=== PATIENT | male | born 1970 | race Caucasian/White ===

== ENCOUNTER 2023-08-18 15:35 | Inpatient (IN) | payer OTHER, SELFPAY ==
[2023-08-18] VITALS (7 sets, daily range): BP systolic 106–129; BP diastolic 69–97; BMI 40.4; BMI 37.9
[2023-08-18 12:45] LABS: % Basophils 0.4 % (0-2); % Eosinophils 1.5 % (0-6); % Immature Granulocytes 0.5 % (0-0.5); % Lymphocytes 11.3 % (20.5-51.1); % Monocytes 8.5 % (1.7-9.3); % Neutrophils 77.8 % (42.2-75.2); Absolute Eosinophils 0.2 10^3/uL (0-0.7); Absolute Immature Granulocytes 0.1 10^3/uL (0-0.05); Absolute Lymphocytes 1.2 10^3/uL (1.2-3.4); Absolute Monocytes 0.9 10^3/uL (0.1-0.6); Absolute Neutrophils 7.9 10^3/uL (1.4-6.5); Hematocrit 45.1 % (39.0-52.0); Hemoglobin 14.9 g/dL (13.0-18.0); Mean Corpuscular Hgb 29.6 pg (27.0-31.0); Mean Corpuscular Volume 89.5 fL (80.0-94.0); Nucleated Red Blood Cells % 0 % (-); Platelet Count 229 10^3/uL (130-400); Red Blood Cell Count 5.04 10^6/uL (4.70-6.10); Red Cell Dist. Width 13.3 % (11.5-14.5); White Blood Cell Count 10.2 10^3/uL (4.8-10.8)
[2023-08-18 13:06] LABS: ALT (SGPT) 44 U/L (0-50); AST (SGOT) 27 U/L (17-59); Albumin 3.8 g/dl (3.5-5.0); Alkaline Phosphatase 83 U/L (38-126); Blood Urea Nitrogen 23 mg/dl (9-20); Calcium 9.5 mg/dl (8.4-10.2); Carbon Dioxide 37 mmol/L (22-30); Chloride 100 mmol/L (98-107); Glucose 125 mg/dl (70-99); Potassium 4.7 mmol/L (3.5-5.1); Sodium 142 mmol/L (135-145); Total Bilirubin 0.8 mg/dl (0.2-1.3); Total Protein 6.5 g/dl (6.3-8.2); eGFR > 60.00
[2023-08-18 13:24] LABS: NT-proBNP 1190 pg/ml; Troponin I 0.041 ng/ml
--- NOTE | 2023-08-18 13:50 | ED.GENMED ---
History of Present Illness
General
Chief Complaint: Cardiac Symptoms
Time Seen by Provider: 08/18/23 13:50
Travel History
Have you had any contact with someone who has COVID-19?: No
Do you have any symptoms of coronavirus? Fever > 100 degrees, chills, cough, shortness of breath, sore throat, loss of taste or smell, muscle aches, or headache?: No
History of Present Illness
History of Present Illness:
HPI: Patient presents with lower extremity edema. PMD found to be in new onset rapid atrial fibrillation. He does not sense palpitations. He also has some vague shortness of breath at times. The lower extremity edema is new. He also indicates
that his PMD told him that his blood sugar was high and he may have diabetes as well.
EXAM:
GENERAL: Well appearing in no significant distress
HEENT: Moist oral mucosa
CARDIOVASCULAR: No murmurs, tachycardic heart rate, irregular rhythm, No chest wall tenderness
PULMONARY: No respiratory distress, breath sounds are clear and equal other than some may be decreased breath sounds at the bases
ABDOMEN: Soft with no peritoneal signs, no tenderness
NEUROLOGIC: Excellent strength all extremities, no coordination deficits
PSYCHIATRIC: Appropriate mental status, normal insight and judgement
EXTREMITIES: Nontender, 2+ bilateral lower extremity edema, moves all extremities equally
SKIN: Maculopapular type of rash over the face is noted however I suspect this is chronic
TIME OF INITIAL ENCOUNTER: 2 PM
NUMBER AND COMPLEXITY OF PROBLEMS ADDRESSED AT THE ENCOUNTER
� Chronic conditions affecting care: Questionable diabetes, asthma, is a smoker
� Acute Exacerbation and/or Progression of Chronic Illness: This is an acute problem
� Differential Diagnosis includes: Heart failure, electrolyte abnormality, ACS, atrial fibrillation, thyroid disease, relatively low suspicion for PE as the lower extremity edema is equal bilaterally
AMOUNT AND/OR COMPLEXITY OF DATA TO BE REVIEWED AND ANALYZED
� I performed an independent evaluation of and my interpretation is:
EKG: A-fib 121, leftward axis deviation, poor R wave progression, right bundle branch block, and 2011 the patient was in sinus rhythm
CT:
X-rays: Chest x-ray suggest heart failure with only some mild pulmonary vascular congestion along with cardiomegaly
Laboratory Studies: BNP 1190, troponin 0.041, bicarb is 37
Other:
� Review of other/old records: I reviewed records, the patient had umbilical hernia surgically repaired in 2011
� Clinical information was obtained by an independent historian: I spoke to the fianc� at bedside
� Prescriptions/Medications Considered but not given:
� Further testing considered but not performed:
RISK OF COMPLICATIONS AND/OR MORBIDITY OR MORTALITY OF PATIENT MANAGEMENT
� Social determinants of health affecting care: Lives at home
� Discussion with other providers: I discussed with Dr. Vicente who recommends hospitalist admission and will see in consultation
� Escalation of care including admission/observation vs risk of discharge considered: I am concerned for new onset heart failure in the setting of A-fib with RVR, I have ordered Cardizem and will also plan diuresis. On
reassessment at 2:50 PM, he appears fairly comfortable. Heart rate is down to about 100. He was also given Lasix.
Phy Exam
Physical Exam
Physical Exam:
See HPI
Course
Orders/Labs/Results
Orders:
Orders
08/18/23 12:03
Electrocardiogram (*1) Urgent
Reason for Study: Shortness of Breath
EKG- Treatment ONCE
CXR2 [CR Chest - 2 Views ] Urgent
Comment:
Reason For Exam: sob new onset afib
08/18/23 12:29
Complete Blood Count/With Diff Urgent
Comprehensive Metabolic Panel Urgent
NT-proBNP Urgent
TSH Reflex To Free T4 Urgent
Comment: TSH REFLEXADDED ON BY FLOOR 1:50PM 08-18-23
Troponin I Urgent
08/18/23 13:52
Add On- LAB Urgent
Tests Added?: tsh reflex fT4
Diltiazem HCl [Cardizem] 10 mg IV NOW STA
08/18/23 14:00
Diltiazem 125 mg/125 ml Nss [Cardizem] 125 mg in 125 ml IV PER PROTOCOL
Initial dose in mg/hr, then titrate:: 10
Titrate to keep:: Heart rate 80-100 bpm
Titrate by mg/hr:: 5 mg/hr
Frequency of titrations (minutes):: 15
Maximum dose in mg/hr:: 15
08/18/23 14:02
Furosemide [Lasix] 40 mg IV NOW STA
08/18/23 14:51
CARDIOLOGY CONSULT Urgent
Consulting Provider: Merritt Vicente
Was physician already notified: Yes
Reason for consult: AFib w/ RVR / HF
Abnormal Lab Results
08/18/23
12:29
Abs Immat Gran (auto) 0.1 H 10^3/uL
(0-0.05)
Absolute Neuts (auto) 7.9 H 10^3/uL
(1.4-6.5)
Absolute Monos (auto) 0.9 H 10^3/uL
(0.1-0.6)
Neutrophils % 77.8 H %
(42.2-75.2)
Lymphocytes % 11.3 L %
(20.5-51.1)
Carbon Dioxide 37 H mmol/L
(22-30)
BUN 23 H mg/dl
(9-20)
Glucose 125 H mg/dl
(70-99)
Troponin I 0.041 H* ng/ml
08/18/23 12:29
08/18/23 12:29
Vital Signs
Initial and Last Documented VS:
Initial Vital Signs
Temp Pulse Resp Pulse Ox
98.0 F 108 16 98
08/18/23 12:00 08/18/23 12:00 08/18/23 12:00 08/18/23 12:00
Last Documented Vital Signs
Temp Pulse Resp Pulse Ox
98.0 F 108 16 98
08/18/23 12:00 08/18/23 12:00 08/18/23 12:00 08/18/23 12:00
*Critical Care Note
Total Time (30-74mins, 75-104mins- exclusive of procedures): Not Applicable
ED Attending Note
-
Portions of this chart may have been created with voice recognition software.� Occasional wrong word or��sound alike� substitutions may have occurred due to the inherent limitations of voice recognition software.
Discharge Plan
Departure
Patient Disposition: Admit
Date of Disposition: 08/18/23
Time of Disposition: 14:12
Presentation/result/management discussed w/ accepting MD/DO: Hospitalist
Discharge Problem:
Atrial fibrillation with RVR
Prescriptions:
No Action
ibuprofen 800 mg Tablet
800 mg PO Q6HPRN PRN (Reason: mild pain)
Interventions
Interventions:
*Risk Screen - Suicide Last Done: 08/18/23 14:32
*Neglect/Abuse Screening Last Done: 08/18/23 14:32
*ED COVID-19 Vaccine History Last Done: 08/18/23 12:00
ED- Pulmonary Assessment Last Done: 08/18/23 14:33
ED- Cardiac Assessment Last Done: 08/18/23 14:32
Discharge Date and Time
Print Language: PERSIAN
[2023-08-18] MEDS: CARDIZEM 10 MG IV (14:06)
[2023-08-18] MEDS: CARDIZEM 125 IV (14:07)
[2023-08-18] MEDS: LASIX 40 MG IV (14:22)
--- NOTE | 2023-08-18 14:25 | HPS.HSE ---
Addendum entered and electronically signed by Clemente Olson MD 08/18/23 16:35:
Seen and examined by me independently in collaboration with the nurse practitioner Manjeet.
Past medical history/social history/medication/allergies reviewed.
Lab data and imaging data reviewed.
Patient presents with signs and symptoms of acute congestive heart failure on [facility] A-fib. Hemodynamically stable. No immediate preceding acute medical issues precipitating cardiac issues. Alcohol in the differential diagnosis.
Started on Cardizem for rate control. Continue with IV Lasix. Check an echocardiogram. Admit to IVU. Consult cardiology.
Original Note:
Family Physician
-
Family Physician: Dirk Jackson
Chief Complaint
-
LE edema
sob
History of Present Illness
52-year-old with no significant past medical history presented to us with bilateral lower extremities swelling which progressively getting worse for past few weeks patient stated progressively short of breath which is worse with exertion. Patient
denied any chest pain. Denied orthopnea patient denied any headache, dizziness, syncopal episode. Patient denied fever, chills, congestion, cough. Patient denied abdominal pain, nausea, vomiting, diarrhea. Patient denied dysuria hematuria.
Patient was evaluated by primary care physician today. EKG obtained at the primary care noted to have A-fib with RVR. Sent into ER for further management.
Patient initiated on Cardizem drip.
Medical History
Past Medical History
Past Medical History: Reports Other
Additional Past Medical History:
psoriasis
Nicotine use
Past Surgical History: Reports Other
Additional Past Surgical History:
Herniated belly button surgery
Social History
Tobacco: Smoker (Half a pack)
Alcohol: Occasional
Drug: None
Personal:
Living: With Family
Family History
Family History: Not pertinent
Allergies / Home Medications
Allergies reflects when Allergies were last updated in [facility].
Home Medications with original date entered in [facility]
Allergy/Medication List:
Allergies
Allergy/AdvReac Type Severity Reaction Status Date / Time
No Known Drug Allergies Allergy na Verified 08/18/23 12:02
bee stings Allergy swells up Uncoded 08/18/23 12:02
really bad
Home Medications
ibuprofen 800 mg tablet 800 mg PO Q6HPRN PRN mild pain 08/18/23
Review of Systems
-
Constitutional: Reports No Symptoms
EENT: Reports No Symptoms
Respiratory: Reports Trouble Breathing
Cardiac: Reports No Symptoms
Abdomen/GI: Reports No Symptoms
: Reports No Symptoms
Musculoskeletal: Reports No Symptoms and Edema (Bilateral lower extremities edema)
Skin: Reports No Symptoms
Neurological: Reports No Symptoms
Endocrine: Reports No Symptoms
Hematologic/Lymphatic: Reports No Symptoms
Psych: Reports No Symptoms
Physical Exam
Vital Signs
Vital Signs
Temp Pulse Resp Pulse Ox
98.0 F 108 16 98
08/18/23 12:00 08/18/23 12:00 08/18/23 12:00 08/18/23 12:00
Physical Exam
General: Well Developed, Well Nourished and No Apparent Distress
HEENT: NormoCephalic, Moist mucous membranes and Atraumatic
Respiratory: Clear
Cardiac: S1/S2 and Regular Rhythm; No Murmur or Rub
GI: Soft, Non Tender, Non Distended and Normal Bowel Sounds; No Organomegaly
Rectal: Deferred by Provider
Musculoskeletal: No Clubbing, No Cyanosis, No Edema and Other (Bilateral lower extremities +2 edema)
Skin: No Rash
Neuro: AO x 3 and Nonfocal/grossly intact
Psych: Calm
Laboratory Results
-
08/18/23 12:29
08/18/23 12:29
Laboratory Results
Total Bilirubin 0.8 mg/dl (0.2-1.3) 08/18/23 12:29
AST 27 U/L (17-59) 08/18/23 12:29
ALT 44 U/L (0-50) 08/18/23 12:29
Alkaline Phosphatase 83 U/L (38-126) 08/18/23 12:29
Troponin I 0.041 ng/ml H* 08/18/23 12:29
Data Reviewed
-
Diagnostic Radiology: Report Reviewed by me
Lab Data: Labs Reviewed by me
Impression/Plan
-
# New onset A-fib
-HR in 130s to 140s
-EKG with ATRIAL FIBRILLATION WITH RAPID VENTRICULAR RESPONSE
-IV Cardizem continued
# Bilateral lower extremities edema likely new onset CHF,
-BNP 1190
-Chest x-ray with mild pulmonary vascular congestion/tiny bilateral pleural effusions.Hazy opacity projects over the right lower lung zone, which may represent alveolar pulmonary edema, subsegmental atelectasis, or pneumonia.
-Strict LINDA
-Daily weight
-IV Lasix
-Fluid restriction
-Cardiology consult
# Elevated Trop likely demand ischemia
-Trop 0.041
-Trend troponin
-No complaints of chest pain
-Continue to monitor
#hyperglycemia likely type 2 DM
-sliding scale
-bgm
-obtain a1c
#nicotine dependence
-nicotine patch
#hxt of alcohol abuse
-drink couple times a week
-continue to monitor
# DVT prophylaxis
-Lovenox
# CODE STATUS
-Full code
--- NOTE | 2023-08-18 14:44 | CON.CAR ---
Addendum entered and electronically signed by Merritt Vicente DO 08/18/23 17:14:
I saw and examined the patient.
The Pst Supervisor's note was reviewed and I agree with the note.
Comment:
Plan:
Discussed atrial fibrillation including rate control, rhythm control and stroke prophylaxis. Also discussed that atrial fibrillation may be contributing to his heart failure.
Start anticoagulation. IV heparin with transition to oral anticoagulation pending echo.
Likely consideration for GINGER/cardioversion once patient is better optimized from a heart failure standpoint, possibly next 48 hours.
Continue IV Cardizem and add oral Toprol. Wean off IV Cardizem next 24 hours.
Avoiding significant caffeine and alcohol was discussed.
Repeat sleep study should be considered as an outpatient as the patient has a history of sleep apnea not treated. Untreated sleep apnea has significant cerebrovascular and cardiovascular risk including stroke. Untreated sleep apnea may also be
contributing to his atrial fibrillation.
Heart failure teaching.
The patient should be monitored for alcohol withdrawal
Trend cardiac enzymes until they peak. Likely non-UT troponin
Check echocardiogram to evaluate left ventricular systolic function
Discussed with fianc� at bedside
Original Note:
Consultation
Consultation Request
Date/Time Consultation Requested: 08/18/23
Date/Time Consultation Performed: 08/18/23
Requesting Provider: Dr. Olson
Performing Provider: Dr. Vicente
Reason for Consultation: Acute HF unknown EF, newly diagnosed Afib
Medical History
-
History of Present Illness:
Patient came to [facility] today from his PCP's office with increased LE edema and new Afib, cardiology has been consulted. Patient started with increased LE edema 2-3 weeks ago. At first he thought it was from being at work and on his feet all day, but
this was a new symptom. He started with SOB about 1-2 weeks ago and has been unable to sleep the last 2-3 nights with symptoms of restlessness, but not reported orthopnea. No resting SOB. Patient saw his PCP today and was in new Afib, but he does
not feel palpitations. Patient was sent to [facility] and pro-BNP 1190 and evidence of CHF by CXR. Patient was given Lasix 40 mg IV x1 in the ER and has noted tremendous urine output thus far. Patient drinks a Monster energy drink daily plus 5 hour energy
drinks as needed. He drinks about a fifth of Radu weekly. He is still smoking about half a pack a day.
PMH:
Active smoker
Alcohol use disorder
Psoriasis
Past Medical History
Past Medical History: Other (in HPI)
Past Surgical History: Other (hernia repair)
Social History
Tobacco: Smoker (started smoking age 18, still smoking now and down to a half pack)
Alcohol: Daily (drinks a fifth of Radu a week, more on weekends than weekdays)
Drug: None
Personal: (but has a supportive partner, Edwige.)
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
Family History
Family History: Reviewed & Not Pertinent
Allergies / Home Medications
Allergy/AdvReac Type Severity Reaction Status Date / Time
No Known Drug Allergies Allergy na Verified 08/18/23 12:02
bee stings Allergy swells up Uncoded 08/18/23 12:02
really bad
�Medication �Instructions �Recorded �Confirmed �Type
ibuprofen 800 mg tablet 800 mg PO Q6HPRN PRN mild pain 08/18/23 08/18/23 History
Review of Systems
-
History Source: Patient and Family (partner, Edwige, sitting bedside and helping with HPI)
All other systems: Negative unless noted
Physical Exam
Vital Signs
Temp Pulse Resp Pulse Ox
98.0 F 108 16 98
08/18/23 12:00 08/18/23 12:00 08/18/23 12:00 08/18/23 12:00
GEN: NAD. AAOx3
HEENT: EOMI, MMM
LUNGS: Few rales without wheeze
CV: Irreg irreg, S1/S2, no murmur
ABD: soft, BS+, NT, ND, pitting edema lower abdomen
EXT: Pitting edema above thighs to lower abdomen. No clubbing, cyanosis or lesions B/L
NEURO: Gross non-focal
SKIN: Psoriasis, otherwise warm, dry and pink.
Lab Results
08/18/23 12:29
08/18/23 12:
Troponin I 0.041 ng/ml H* 08/18/23 12:
Ijf-[id number]-[id number] Pept 1190 pg/ml 08/18/23 12:
Impression / Plan
-
PCP: Dr. Jackson
Cardiology: None prior to admission
Impression:
Acute HF unknown EF
Anasarca
Newly diagnosed Afib with RVR of unclear duration
Elevated Troponin
Active smoker
Alcohol use disorder
Untreated AAMIR
Hyperglycemia
Psoriasis
Echo 08/18/23: Study pending
Plan:
-Patient came to [facility] today from his PCP's office with increased LE edema and new Afib, cardiology has been consulted. Patient started with increased LE edema 2-3 weeks ago. At first he thought it was from being at work and on his feet all day, but
this was a new symptom. He started with SOB about 1-2 weeks ago and has been unable to sleep the last 2-3 nights with symptoms of restlessness, but not reported orthopnea. No resting SOB. Patient saw his PCP today and was in new Afib, but he does
not feel palpitations. Patient was sent to [facility] and pro-BNP 1190 and evidence of CHF by CXR. Patient was given Lasix 40 mg IV x1 in the ER and has noted tremendous urine output thus far. Patient drinks a Monster energy drink daily plus 5 hour energy
drinks as needed. He drinks about a fifth of Radu weekly. He is still smoking about half a pack a day.
-Check echo
-Agree with Lasix 40 mg IV daily, can increase pending weight, Cre and BP.
-Cardizem gtt started in ER and HRs under better control. Will add Toprol XL 25 mg daily starting tonight as well.
-Will start Heparin gtt now and then transition to Eliquis pending echo.
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 Reviewed that in order to perform GINGER/CV he will need at least a month of OAC.
-Talked about short term and detention management of Afib, reviewed GINGER/CV this admission and then longer term AAD or possibly ablation.
-Will modify meds pending echo and EF.
-Patient with h/o abnormal sleep study and was recommended CPAP, but his insurance would not cover at the time. He has different insurance now so will need a new sleep study and eval for CPAP.
-Talked with hospitalist attending about alcohol use and will need to watch for withdrawal.
-Initial Troponin 0.041. No ischemic changes on ECG reviewed by me. Echo pending. No chest pain. Will manage as a nonischemic myocardial injury Troponin elevation for now.
-HgbA1c and CVE pending for the morning
[2023-08-18 15:30] LABS: TSH Reflex To Free T4 4.98 uIU/ml (0.47-4.68)
[2023-08-18 16:00] LABS: Free T4 1.16 ng/dl (0.78-2.19)
[2023-08-18] MEDS: NICODERM TRANSDERMAL 21 MG TRANSDERM (17:17)
[2023-08-18] MEDS: LOVENOX 40 MG SC (17:18)
[2023-08-18 17:45] LABS: Glucose - Point of Care 113 mg/dl (70-99)
[2023-08-18] MEDS: NOVOLOG FLEXPEN-LOW RESISTANCE SC (17:49)
--- NOTE | 2023-08-18 18:34 | PTCARENOTE ---
patient arrived from ER with IV Cardizem drip @ 10cc/hr, monitor placed, Afib on the monitor. this is all new to patient. VSS. oriented to unit. admission questions asked, patient smokes marijuana and cigarettes. NicoDerm patch placed on left arm.
CHF booklet given to patient.
[2023-08-18 19:52] LABS: Troponin I 0.048 ng/ml
[2023-08-18 21:28] LABS: Glucose - Point of Care 124 mg/dl (70-99)
--- NOTE | 2023-08-18 21:35 | PTCARENOTE ---
CHF teaching provided- Pt educated on voiding the urinal and monitoring fluid intake- daughter brought [facility]- discussed this was not the best option for hydration at this time. pt verbalized understanding- without complaints. ambulating the
room as a self. call tate within reach.
[2023-08-19] VITALS (15 sets, daily range): BP systolic 105–134; BP diastolic 66–109; BMI 37.6
[2023-08-19 02:16] LABS: Hematocrit 42.8 % (39.0-52.0); Hemoglobin 14.4 g/dL (13.0-18.0); Mean Corp Hgb Conc. 33.6 g/dL (33.0-37.0); Mean Corpuscular Hgb 29.2 pg (27.0-31.0); Mean Corpuscular Volume 86.8 fL (80.0-94.0); Mean Platelet Volume 9.5 fL (7.4-10.4); Platelet Count 220 10^3/uL (130-400); Red Blood Cell Count 4.93 10^6/uL (4.70-6.10); Red Cell Dist. Width 13.3 % (11.5-14.5); White Blood Cell Count 11.4 10^3/uL (4.8-10.8)
[2023-08-19] MEDS: CARDIZEM 125 IV (02:18)
[2023-08-19 02:43] LABS: ALT (SGPT) 34 U/L (0-50); AST (SGOT) 26 U/L (17-59); Albumin 3.5 g/dl (3.5-5.0); Alkaline Phosphatase 78 U/L (38-126); Blood Urea Nitrogen 19 mg/dl (9-20); Calcium 9.6 mg/dl (8.4-10.2); Carbon Dioxide 36 mmol/L (22-30); Chloride 97 mmol/L (98-107); Direct Bilirubin 0.5 mg/dl (0.0-0.4); Estimated Creatinine Clearance > 125 ml/min; Glucose 130 mg/dl (70-99); HDL Cholesterol 33 mg/dl; LDL Cholesterol, Calculated 84 mg/dl; Magnesium 1.9 mg/dl (1.6-2.3); Potassium 4.2 mmol/L (3.5-5.1); Sodium 141 mmol/L (135-145); Total Cholesterol 131 mg/dl (50-199); Total Protein 6.1 g/dl (6.3-8.2); Triglyceride 70 mg/dl (10-149); Very Low Density Lipoprotein 14 mg/dl (0-30); eGFR > 60.00
[2023-08-19 03:22] LABS: Troponin I 0.047 ng/ml
--- NOTE | 2023-08-19 07:26 | W.PN.CARDCBS ---
Addendum entered and electronically signed by Merritt Vicente DO 08/19/23 10:09:
I saw and examined the patient.
The Tower Control Operator's note was reviewed and I agree with the note.
Comment:
Plan:
Cont lasix IV diuresis. 4L out overnight. May consider additional lasix IV today
Echo pending.
Wean IV cardizem and increase Toprol XL
Likely transition to oral anticoagulation with Eliquis today from IV Heparin.
Needs outpt sleep study for hx AAMIR not on CPAP. Risk of recurrent aFib and CVA with untreated AMAIR
GINGER/cv in AM
Original Note:
Today's Communication / Plan
-
Considering another dose of Lasix this afternoon
Echo pending for today
Stopped Cardizem gtt and started Toprol XL
Pending echo and EF will need to tailor meds
GINGER/CV in AM
Impression / Plan
-
PCP: Dr. Jackson
Cardiology: None prior to admission
Impression:
Acute HF unknown EF
Anasarca
Newly diagnosed Afib with RVR of unclear duration
Elevated Troponin
Active smoker
Alcohol use disorder
Untreated AAMIR
Hyperglycemia
Psoriasis
Echo 08/19/23: Study pending
Plan:
-Weight is down 3 lbs overnight with Lasix 40 mg IV daily and Cre is stable. Might give another dose of Lasix 40 mg IV 08/19/23 PM pending diuresis throughout the day
-Echo pending for 08/19/23
-Pending echo will need to adjust meds.
-Remains in Afib on tele. Stop Cardizem gtt now. Will add Toprol XL 25 mg daily now
-Started Heparin gtt 08/19/23. Pending echo will transition to Eliquis
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 Reviewed that in order to perform GINGER/CV he will need at least a month of OAC.
-Talked about short term and half-way management of Afib, reviewed GINGER/CV this admission and then longer term AAD or possibly ablation.
-Patient with h/o abnormal sleep study and was recommended CPAP, but his insurance would not cover at the time. He has different insurance now so will need a new sleep study and eval for CPAP.
-Talked with hospitalist attending about alcohol use and will need to watch for withdrawal.
-Troponin peaked at 0.048. No ischemic changes on ECG reviewed by me. Echo pending. No chest pain. Will manage as a nonischemic myocardial injury Troponin elevation for now.
-HgbA1c pending. Hyperglycemic with fasting morning labs
-LDL 84, does not take a statin.
HPI: Patient came to [facility] today from his PCP's office with increased LE edema and new Afib, cardiology has been consulted. Patient started with increased LE edema 2-3 weeks ago. At first he thought it was from being at work and on his feet all day,
but this was a new symptom. He started with SOB about 1-2 weeks ago and has been unable to sleep the last 2-3 nights with symptoms of restlessness, but not reported orthopnea. No resting SOB. Patient saw his PCP today and was in new Afib, but he
does not feel palpitations. Patient was sent to [facility] and pro-BNP 1190 and evidence of CHF by CXR. Patient was given Lasix 40 mg IV x1 in the ER and has noted tremendous urine output thus far. Patient drinks a Fanattacter energy drink daily plus 5 hour
energy drinks as needed. He drinks about a fifth of Radu weekly. He is still smoking about half a pack a day.
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
Subjective
Date of Service: August 19, 2023
He feels well, no palpitations
Objective
Labs:
08/19/23 02:10
08/19/23 02:10
Labs
Hgb 14.4 g/dL (13.0-18.0) 08/19/23 02:10
Hct 42.8 % (39.0-52.0) 08/19/23 02:10
Plt Count 220 10^3/uL (130-400) 08/19/23 02:10
Sodium 141 mmol/L (135-145) 08/19/23 02:10
Potassium 4.2 mmol/L (3.5-5.1) 08/19/23 02:10
BUN 19 mg/dl (9-20) 08/19/23 02:10
Creatinine 0.7 mg/dL (0.7-1.3) 08/19/23 02:10
Glucose 130 mg/dl (70-99) H 08/19/23 02:10
Troponins
08/18/23 08/18/23 08/19/23
12:29 19:21 02:10
Troponin I 0.041 H* 0.048 H* 0.047 H*
Vital Signs and I&O:
Vital Signs
Temp Pulse Resp BP Pulse Ox
97.7 F 83 18 105/66 92
08/19/23 07:16 08/19/23 05:00 08/19/23 07:16 08/19/23 02:02 08/19/23 07:16
Vital Signs
Temp Pulse Resp BP Pulse Ox
97.7 F 83 18 105/66 92
08/19/23 07:16 08/19/23 05:00 08/19/23 07:16 08/19/23 02:02 08/19/23 07:16
Intake & Output
08/17/23 08/18/23 08/19/23 08/20/23
06:59 06:59 06:59 06:59
Intake Total 30 / 30
Output Total 4060 / 4060
Balance -4030 / -4030
Physical Exam
Physical Exam
GEN: AAOx3
HEENT: EOMI
LUNGS: No audible wheeze
CV: Afib on tele
ABD: ND
EXT: Pitting edema above thighs to lower abdomen. No clubbing, cyanosis or lesions B/L
NEURO: Gross non-focal
SKIN: Psoriasis, otherwise warm, dry and pink.
[2023-08-19 08:07] LABS: APTT 29.4 Sec (23.4-35.0)
[2023-08-19] MEDS: HEPARIN 25000 UNITS/250 ML IV (08:27)
[2023-08-19] MEDS: LASIX 40 MG IV (08:34)
[2023-08-19] MEDS: NICODERM TRANSDERMAL 21 MG TRANSDERM (08:35)
--- NOTE | 2023-08-19 09:12 | W.PN.HOSP.TC ---
Today's Communication/Plan
-
ECHO today
CW BB
CW Lasix
CW IV heparin
Assessment / Plan
Assessment / Plan
# New onset A-fib
-Improved heart rate. Off of Cardizem drip. Started on beta-teresa. Continue with telemetry. Thyroid profile noted-no evidence of hypothyroidism.
-Started on anticoagulation-currently on IV heparin.
-If remains in A-fib plan is for GINGER cardioversion tomorrow.
# Bilateral lower extremities edema likely new onset CHF,
-BNP 1190
-Chest x-ray with mild pulmonary vascular congestion/tiny bilateral pleural effusions.Hazy opacity projects over the right lower lung zone, which may represent alveolar pulmonary edema, subsegmental atelectasis, or pneumonia.
-Strict LINDA
-Daily weight
-Continue IV Lasix
-Fluid restriction
-Await echocardiogram
# Elevated Trop-felt likely nonischemic myocardial injury
-Trop 0.041
-Trend troponin
-No complaints of chest pain
-Continue to monitor
#hyperglycemia likely type 2 DM
-sliding scale
-bgm
-obtain a1c
#nicotine dependence
-nicotine patch
#hx of alcohol abuse
-Drinks on the weekends last some days of the week. Advised to minimize alcohol intake or try and abstain from alcohol altogether which is good for his health and afib.
-continue to monitor
-No evidence of alcohol withdrawal
# DVT prophylaxis
-Lovenox
# CODE STATUS
-Full code
Anticipated Discharge: 24 - 48 hours
Subjective/Interval History
-
Date of Service: August 19, 2023
Sitting comfortably at the edge of the bed. Denies any shortness of breath, chest pain or palpitations.
Objective Data
-
Labs:
Laboratory Results
08/19/23 08/19/23 08/19/23
02:10 07:49 14:30
WBC 11.4 H
Hgb 14.4
Hct 42.8
Plt Count 220
APTT 29.4 Pending
Sodium 141
Potassium 4.2
Chloride 97 L
Carbon Dioxide 36 H
BUN 19
Creatinine 0.7
Glucose 130 H
Calcium 9.6
Total Bilirubin 1.0
AST 26
ALT 34
Alkaline Phosphatase 78
Vital Signs:
Vital Signs
Temp Pulse Resp BP Pulse Ox
97.7 F 86 18 107/67 92
08/19/23 07:16 08/19/23 08:34 08/19/23 07:16 08/19/23 08:34 08/19/23 07:16
I&O
08/18/23 08/19/23 08/20/23
06:59 06:59 06:59
Intake Total 30 30
Output Total 4060 / 4060
Balance -4030 / -4030
Review of Systems
-
Constitutional: Denies Fever
EENT: Denies Sore Throat
Respiratory: Denies Cough
Abdomen/GI: Denies Abdominal Pain, Nausea or Vomiting
Neuro: Denies Tremors
Physical Exam
-
General: No Apparent Distress
HEENT: Moist Mucous Membranes
Respiratory: Clear to Auscultation
Cardiac: S1/S2 and Irregular Rhythm; Negative Tachycardic
GI: Soft
Musculoskeletal: Edema, Right Lower Extrem and Edema, Left Lower Extrem
Neuro: AO x 3; Negative Tremors
Psych: Calm; Negative Confused
Data Reviewed
-
Labs: Labs Reviewed by me
[2023-08-19 09:22] LABS: Glycohemoglobin (HgbA1c) 6.9 % (4.0-5.6)
[2023-08-19] MEDS: NOVOLOG FLEXPEN-LOW RESISTANCE SC (09:33)
[2023-08-19] MEDS: TOPROL XL 12.5 MG PO ×2 (10:22)
--- NOTE | 2023-08-19 10:36 | PTCARENOTE ---
received patient this am, monitor remains in Afib, VSS. IV Cardizem @ 10cc/hr and IV heparin started at 1500units/hr via right ant. patient was going to Echo via stretcher, Toprol XL increased dosage given as ordered and IV Cardizem drip D/C'd.
--- NOTE | 2023-08-19 10:52 | CM ---
Reviewed chart. Met with Mr. Woodward and his significant other to review discharge plans. He states prior to admission he resides with his significant other in a two story home with one step to enter. He states his bedroom/full bathroom are on the
first floor. He states prior to admission he was independent with ambulation and adls. He states he cool snot have any DME in the home. He states he has a prescription plan and uses [facility]. Telephone call to his pharmacy benefit to check on
coverage for Eliquis and Xarelto. He has a zero co-pay for Eliquis and zero co-apy for Xarelto. Medical work-up in progress. The discharge plan is to return home with his significant other when medically stable.
[2023-08-19 11:28] LABS: Glucose - Point of Care 176 mg/dl (70-99)
[2023-08-19] MEDS: NOVOLOG FLEXPEN-LOW RESISTANCE 1 UNITS SC ×2 (11:59→17:21)
--- NOTE | 2023-08-19 12:59 | PTCARENOTE ---
patient to sleep lab technologist via bed.
--- NOTE | 2023-08-19 12:59 | W.PN.UPDATE ---
Update Note
Progress Note Update
Talked with patient and his partner, Edwige, in the room. Reviewed echo findings. Discussed CM could be due to CAD or Afib. Explained that cardiac cath would be a tool to exclude CAD as a cause for his CM. Explained that once we perform GINGER/CV he
cannot interrupt OAC for 1 month. Answered questions and explained procedure. Plan is for cardiac cath today.
--- NOTE | 2023-08-19 14:32 | ITS.CL.CATH ---
Payroll Assistant - Catheterization
Cardiac Catheterization
Procedure Report:
LEFT HEART CATHETERIZATION
Date of Procedure: August 19, 2023
Referring: Dr. Merritt Vicente
PROCEDURES:
1. Coronary angiogram
INDICATION: Dilated cardiomyopathy apathy and new onset atrial fibrillation
ACCESS: Right radial artery, 6 Sinhala sheath
HEMODYNAMICS : (mmHg)
AO (s/d) : 103/77, 86
CORONARY FINDINGS
DOMINANCE: Left
LEFT MAIN: Short and unobstructed
LEFT ANTERIOR DESCENDING: The LAD is a large-caliber vessel arising normally from the left main and running in the anterior interventricular groove. The LAD has only minor irregularities over its course and wraps completely around the apex
supplying a significant portion of the inferior wall.
CIRCUMFLEX: The circumflex is a large-caliber dominant vessel supplying a single bifurcating obtuse marginal branch before continuing in the AV groove giving rise to 2 small posterolateral branch and small PDA.
RIGHT CORONARY ARTERY: Nondominant
VENTRICULOGRAPHY: Not done
RADIATION SUMMARY: Fluoro Time (min): 4.6, Dose (mGy): 594, DAP (Gy.cm2) : 40.1
Closure Device: TR band
CONCLUSIONS
1. Nonobstructive coronary disease
RECOMMENDATIONS
1. Planned GINGER cardioversion for atrial fibrillation
Copy to: Dr. Merritt Vicente
[2023-08-19 16:55] LABS: Glucose - Point of Care 172 mg/dl (70-99)
[2023-08-19] MEDS: ELIQUIS 5 MG PO (20:10)
--- NOTE | 2023-08-19 21:37 | PTCARENOTE ---
pt and significant other at bedside- plan of care discussed- education provided on CHF- both verbalized understanding. Aware of NPO status for this evening for plans for GINGER/CV. remains afib on the monitor. 90s-100s at rest then up to the 140s with
movement. no complaints at this time. call tate within reach.
[2023-08-19 22:00] LABS: Glucose - Point of Care 121 mg/dl (70-99)
[2023-08-20] VITALS (9 sets, daily range): BP systolic 102–155; BP diastolic 67–138; PULSE 93; BMI 37.1
--- NOTE | 2023-08-20 03:11 | DOWNTIME ---
There was a [employer] Client Cost And Sales Record Supervisor Downtime on 08/19/2023 from 0100 to 08/20/2023 at 0300. Downtime documentation of patient's care, including medication administrations, has been reconciled in the electronic record per guidelines. Refer to the
patient's paper chart under the miscellaneous tab to see printed paper medication records and downtime forms.
[2023-08-20 04:59] LABS: Hematocrit 41.7 % (39.0-52.0); Hemoglobin 13.9 g/dL (13.0-18.0); Mean Corp Hgb Conc. 33.3 g/dL (33.0-37.0); Mean Corpuscular Volume 87.1 fL (80.0-94.0); Mean Platelet Volume 9.9 fL (7.4-10.4); Platelet Count 221 10^3/uL (130-400); Red Blood Cell Count 4.79 10^6/uL (4.70-6.10); Red Cell Dist. Width 13.2 % (11.5-14.5); White Blood Cell Count 10.7 10^3/uL (4.8-10.8)
[2023-08-20 05:23] LABS: Blood Urea Nitrogen 21 mg/dl (9-20); Calcium 9.7 mg/dl (8.4-10.2); Carbon Dioxide 33 mmol/L (22-30); Chloride 97 mmol/L (98-107); Estimated Creatinine Clearance > 125 ml/min; Glucose 129 mg/dl (70-99); Potassium 4.2 mmol/L (3.5-5.1); Sodium 137 mmol/L (135-145); eGFR > 60.00
[2023-08-20] MEDS: ELIQUIS 5 MG PO ×2 (07:01→20:11)
[2023-08-20] MEDS: TOPROL XL 25 MG PO (07:02)
[2023-08-20] MEDS: LASIX 40 MG IV (09:16)
[2023-08-20] MEDS: NICODERM TRANSDERMAL 21 MG TRANSDERM (09:20)
[2023-08-20] MEDS: NOVOLOG FLEXPEN-LOW RESISTANCE SC ×3 (09:33→18:26)
[2023-08-20 09:39] LABS: Glucose - Point of Care 120 mg/dl (70-99)
--- NOTE | 2023-08-20 10:13 | W.PN.CARDCBS ---
Addendum entered and electronically signed by James Dyer MD 08/20/23 12:45:
I saw and examined the patient.
The [employer] Consultant's note was reviewed and I agree with the note.
Comment:
GEN: No distress, awake, Ox3
HEENT: supple, anicteric, mmm
LUNGS: CTA, no wheezes/rales
CV: Reg, S1/S2, 1/6 syst LSB, no gallop
ABD: soft, BS+, NT/ND
EXT: +1 edema
NEURO: Gross non-focal
SKIN: No rash
plan:
Doing well status post GINGER cardioversion. Will switch to Coreg and add losartan and Jardiance.
Continue IV Lasix to diurese.
Will need repeat echo in 3 months to reevaluate LVEF.
Needs outpatient sleep study.
If has recurrent A-fib would consider antiarrhythmic or ablation therapy.
Original Note:
Today's Communication / Plan
-
s/p successful GINGER/CV 08/19
transition toprol to coreg. added losartan, jardiance today
continue IV lasix
OP sleep study
Impression / Plan
-
PCP: Dr. Jackson
Cardiology: None prior to admission
Impression:
Acute HFrEF
Anasarca
Newly diagnosed Afib with RVR of unclear duration s/p successful GINGER/CV 08/20/23
Elevated Troponin, nonMI trop elevation as cath with nonobstructive CAD 08/19/23
Active smoker
Alcohol use disorder
Untreated AAMIR
New diagnosis type 2 diabetes
Psoriasis
Echo 08/19/23: EF 25 to 30%, global hypokinesis, trace MR, mild TR, PAP 30 to 35 mmHg, IVC dilated and does not collapse, no evidence of shunt
Plan:
-He presented for evaluation of B/L LE edema and was found to be in afib with RVR. he underwent echo with new EF 25-30%. cath with nonobstructive CAD 08/19/23.
-s/p successful GINGER/CV 08/20/23. continue eliquis, discussed importance of compliance in setting of CV.
-reviewed results of echo and cath with patient 08/19.
-continue IV diuresis. weight continues to trend down. Cr stable.
-given CM, transitioned toprol to coreg. added low dose losartan, with hope to transition to entresto as OP if BPs tolerate. add jardiance, CM assessing affordability to patient
-consider addition of spironolactone if BP/Cr stable in AM
-will need BMP in 1 week upon DC
-if were to recur with afib, would consider addition of AAD therapy and discuss EP eval for ablation
-h/o abnormal sleep study and was recommended CPAP, but his insurance would not cover at the time. He has different insurance now, so needs OP sleep study as with evidence of sleep apnea
-tobacco and alcohol cessation
-HgbA1c 6.9%, new diabetic. starting jardiance for both diabetes and CHF if affordable
-LDL 84, not on statin.
-OP cardiac follow up arranged
-for possible DC in AM
-d/w nursing, hospitalist
HPI: Patient came to [facility] today from his PCP's office with increased LE edema and new Afib, cardiology has been consulted. Patient started with increased LE edema 2-3 weeks ago. At first he thought it was from being at work and on his feet all day,
but this was a new symptom. He started with SOB about 1-2 weeks ago and has been unable to sleep the last 2-3 nights with symptoms of restlessness, but not reported orthopnea. No resting SOB. Patient saw his PCP today and was in new Afib, but he
does not feel palpitations. Patient was sent to [facility] and pro-BNP 1190 and evidence of CHF by CXR. Patient was given Lasix 40 mg IV x1 in the ER and has noted tremendous urine output thus far. Patient drinks a Monster energy drink daily plus 5 hour
energy drinks as needed. He drinks about a fifth of Radu weekly. He is still smoking about half a pack a day.
Progress Note - Floor Press Operator
Subjective
Date of Service: August 20, 2023
denies CP. reports improvement in breathing and LE edema
Objective
Labs:
08/20/23 04:39
08/20/23 04:39
Labs
Hgb 13.9 g/dL (13.0-18.0) 08/20/23 04:39
Hct 41.7 % (39.0-52.0) 08/20/23 04:39
Plt Count 221 10^3/uL (130-400) 08/20/23 04:39
APTT Cancelled 08/19/23 14:30
Sodium 137 mmol/L (135-145) 08/20/23 04:39
Potassium 4.2 mmol/L (3.5-5.1) 08/20/23 04:39
BUN 21 mg/dl (9-20) H 08/20/23 04:39
Creatinine 0.6 mg/dL (0.7-1.3) L 08/20/23 04:39
Glucose 129 mg/dl (70-99) H 08/20/23 04:39
Troponins
08/18/23 08/18/23 08/19/23
12:29 19:21 02:10
Troponin I 0.041 H* 0.048 H* 0.047 H*
Vital Signs and I&O:
Vital Signs
Temp Pulse Resp BP Pulse Ox
97.9 F 94 20 110/85 97
08/20/23 04:41 08/20/23 05:00 08/20/23 04:41 08/20/23 04:34 08/20/23 08:00
Vital Signs
Temp Pulse Resp BP Pulse Ox
97.9 F 94 20 110/85 97
08/20/23 04:41 08/20/23 05:00 08/20/23 04:41 08/20/23 04:34 08/20/23 08:00
Intake & Output
08/18/23 08/19/23 08/20/23 08/21/23
07:59 07:59 07:59 07:59
Intake Total 30 660 / 660
Output Total 4060 / 4060 2400 / 2400 1500 / 1500
Balance -4030 / -4030 -1740 / -1740 -1500 / -1500
Physical Exam
Physical Exam
GEN: No distress, awake, alert, oriented x3. sitting in chair
HEENT: supple, anicteric, mmm, eomi
LUNGS: Few crackles B/L bases, no wheezes
CV: Reg, S1/S2, no murmur
ABD: soft, BS+, NT/ND
EXT: No cyanosis, clubbing. 2+ edema of B/L LE
NEURO: Gross non-focal
SKIN: Warm, pink, dry. No rash
--- NOTE | 2023-08-20 10:39 | PTOTSP ---
Patient is independent with functional mobility. No skilled PT needs at this time. Will D/C PT services.
[2023-08-20] MEDS: JARDIANCE 10 MG PO (11:35)
[2023-08-20] MEDS: COZAAR 25 MG PO (11:35)
--- NOTE | 2023-08-20 11:36 | CM ---
Reviewed chart. Asked to check co-pay for Jardiance 10 mg po daily. Telephone call to his insurance, ([phone]) to check on co-pay. It is covered under the formulary plan but he has to call the [employer] at( [phone]) to fet the co-pay.
They think the co-pay will be $10.00 a month for Jardiance and $10.00 a month for Eliquis. Met with Mr. Woodward and significant other to review above. He has the number to call the [employer]. Also gave them the $10.00 coupon for Jardiance and
$10.00 coupon for Eliquis because he has commercial insurance. Medical work-up in progress. The discharge plan is to return home with his significant other when medically stable.
--- NOTE | 2023-08-20 11:41 | W.PN.HOSP.TC ---
Today's Communication/Plan
-
see plan above
Likely DC in a.m. if stable.
Assessment / Plan
Assessment / Plan
# New onset A-fib
- s/p electrical cardioversion this morning-in sinus rhythm. cw beta-teresa. Continue with telemetry. Thyroid profile noted-no evidence of hypothyroidism.
-Started on anticoagulation- switch to Eliquis today from IV heparin.
# Bilateral lower extremities edema likely new onset CHF with reduced EF of 25 to 30%
-BNP 1190
-Chest x-ray with mild pulmonary vascular congestion/tiny bilateral pleural effusions.Hazy opacity projects over the right lower lung zone, which may represent alveolar pulmonary edema, subsegmental atelectasis, or pneumonia.
- chronic catheterization shows nonobstructive CAD
-Continue with diuretics with improving weight. Lost 20 pounds of weight.
-Patient advised strongly to quit alcohol.
History of obstructive sleep apnea-patient had evaluation more than 10 years ago and was recommended a CPAP machine but could not afford at that point. He plans to return to see in sleep lab as before and get reevaluated and obtain CPAP.
# Elevated Trop-felt likely nonischemic myocardial injury
-Trop 0.041
-No complaints of chest pain
-Continue to monitor
#hyperglycemia - Hemoglobin A1c of 6.9 indicates type 2 DM
-sliding scale
-bgm
- is going on Jardiance for heart failure which also should help his diabetes mellitus. No plans for any other medication at this point.
#nicotine dependence
-nicotine patch
#hx of alcohol abuse
-Drinks on the weekends last some days of the week. Advised to abstain from alcohol altogether .
-continue to monitor
-No evidence of alcohol withdrawal
# DVT prophylaxis
-Lovenox
# CODE STATUS
-Full code
Anticipated Discharge: 24 - 48 hours
Subjective/Interval History
-
Date of Service: August 20, 2023
patient feels improved. Improved leg swelling. Denies shortness of breath or chest pain.
Status post electrical cardioversion this morning for A-fib
Objective Data
-
Labs:
Laboratory Results
08/20/23
04:39
WBC 10.7
Hgb 13.9
Hct 41.7
Plt Count 221
Sodium 137
Potassium 4.2
Chloride 97 L
Carbon Dioxide 33 H
BUN 21 H
Creatinine 0.6 L
Glucose 129 H
Calcium 9.7
Vital Signs:
Vital Signs
Temp Pulse Resp BP Pulse Ox
98.6 F 94 20 110/85 94
08/20/23 11:31 08/20/23 05:00 08/20/23 11:31 08/20/23 04:34 08/20/23 11:31
I&O
08/19/23 08/20/23 08/21/23
06:59 06:59 06:59
Intake Total 30 / 30 660 / 660
Output Total 4060 / 4060 2400 / 2400 1500 / 1500
Balance -4030 / -4030 -1740 / -1740 -1500 / -1500
Review of Systems
-
Respiratory: Denies Cough or Trouble Breathing
Cardiac: Denies Chest Pain
Abdomen/GI: Denies Abdominal Pain, Nausea or Vomiting
Neuro: Denies Dizzy
Physical Exam
-
General: No Apparent Distress
HEENT: Moist Mucous Membranes
Respiratory: Clear to Auscultation
Cardiac: Regular Rhythm and S1/S2
GI: Soft, Nontender, Nondistended and Normal Bowel Sounds
Musculoskeletal: Edema, Right Lower Extrem and Edema, Left Lower Extrem ( improved bilateral lower extremity swelling)
Neuro: AO x 3
Psych: Calm
Data Reviewed
-
Labs: Labs Reviewed by me
[2023-08-20 13:42] LABS: Glucose - Point of Care 129 mg/dl (70-99)
[2023-08-20] MEDS: MIRALAX 17 GRAMS PO (15:27)
--- NOTE | 2023-08-20 16:36 | PTCARENOTE ---
Pt remains in SR, rate in the 70's to 80's after returning from the cardioversion. Pt voiding large amounts of clear yellow urine. Denies any sob.
[2023-08-20 18:28] LABS: Glucose - Point of Care 110 mg/dl (70-99)
[2023-08-20] MEDS: COREG 3.125 MG PO (20:11)
--- NOTE | 2023-08-20 21:11 | PTCARENOTE ---
Assumed care of patient at change of shift w/ significant other at bedside. Pt currently sitting in chair and denies any pain or SOB. Tele monitor shows SR w/ occasional PACs/PVCs. HR in the 70-80's. Right radial dressing intact w/ positive pulse.
Educated pt on activity restrictions. Provided printed material for heart healthy diet. Educated pt on CHF. Pt voiding in urinal and aware of strict intake and output. POC ongoing. Call tate in reach.
[2023-08-20 21:56] LABS: Glucose - Point of Care 109 mg/dl (70-99)
[2023-08-21 03:07] VITALS: BP 108/69
[2023-08-21 03:09] VITALS: BMI 36.5
[2023-08-21 03:46] LABS: Hematocrit 44.5 % (39.0-52.0); Hemoglobin 14.3 g/dL (13.0-18.0); Mean Corp Hgb Conc. 32.1 g/dL (33.0-37.0); Mean Corpuscular Hgb 28.9 pg (27.0-31.0); Mean Corpuscular Volume 89.9 fL (80.0-94.0); Platelet Count 216 10^3/uL (130-400); Red Blood Cell Count 4.95 10^6/uL (4.70-6.10); Red Cell Dist. Width 13.2 % (11.5-14.5); White Blood Cell Count 10.8 10^3/uL (4.8-10.8)
[2023-08-21 04:17] LABS: Blood Urea Nitrogen 24 mg/dl (9-20); Calcium 9.7 mg/dl (8.4-10.2); Carbon Dioxide 35 mmol/L (22-30); Chloride 96 mmol/L (98-107); Estimated Creatinine Clearance > 125 ml/min; Glucose 108 mg/dl (70-99); Potassium 4.7 mmol/L (3.5-5.1); Sodium 138 mmol/L (135-145); eGFR > 60.00
[2023-08-21 07:31] LABS: Glucose - Point of Care 108 mg/dl (70-99)
[2023-08-21] MEDS: NOVOLOG FLEXPEN-LOW RESISTANCE SC ×2 (07:32→11:51)
[2023-08-21] MEDS: JARDIANCE 10 MG PO (07:33)
[2023-08-21] MEDS: COREG 3.125 MG PO (07:33)
[2023-08-21] MEDS: NICODERM TRANSDERMAL 21 MG TRANSDERM (07:33)
[2023-08-21] MEDS: MIRALAX 17 GRAMS PO (07:33)
[2023-08-21] MEDS: LASIX 40 MG IV (07:34)
[2023-08-21] MEDS: ELIQUIS 5 MG PO (07:34)
[2023-08-21] MEDS: COZAAR 25 MG PO (07:34)
[2023-08-21] MEDS: FLUSH (NSS) 2 FLUSH IV (07:35)
[2023-08-21 07:37] VITALS: BP 104/73
--- NOTE | 2023-08-21 08:27 | W.PN.CARDCBS ---
Addendum entered and electronically signed by Joanie Acuna PA-C 08/21/23 11:39:
Back in to see patient and his partner, Edwige. Updated on hospital course thus far, medication changes and plans for f/u. SPD bringing a scale to room. Will consult cardiac rehab. TT to attending re: glucometer.
Addendum entered and electronically signed by Merritt Vicente DO 08/21/23 10:34:
I saw and examined the patient.
The [employer]'s note was reviewed and I agree with the note.
Comment:
Plan:
Reviewed his cath, GINGER, and cardioversion
He remains in sinus.
Discussed compliance with meds and with followup and reviewed meds with him
Discussed repeating echo as outpt now that he is in sinus and after GDMT.
If EF fails to improve despite sinus rhythm and GDMT, could eventually consider ICD. Hopefully with sinus and with medical therapy, EF will improve as outpt and primary prevention ICD could be deferred.
Outpt follow up to be arranged
Stable from cardiac standpoint for d/c today.
Original Note:
Today's Communication / Plan
-
Likely d/c to home today
Impression / Plan
-
PCP: Dr. Jackson
Cardiology: None prior to admission
Impression:
Acute HFrEF
Anasarca
Newly diagnosed Afib with RVR of unclear duration s/p successful GINGER/CV 08/20/23
Elevated Troponin, cath with nonobstructive CAD 08/19/23
Active smoker
Alcohol use disorder
Untreated AAMIR
New diagnosis type 2 diabetes
Psoriasis
Echo 08/19/23: EF 25 to 30%, global hypokinesis, trace MR, mild TR, PAP 30 to 35 mmHg, IVC dilated and does not collapse, no evidence of shunt
Plan:
-Weight down 12 lbs this admission and he feels less bloated and LE edema is greatly improved. Patient diuresed with Lasix 40 mg IV daily. Will discharge to home on Lasix 40 mg PO daily. Patient was not taking a diuretic prior to admission.
-EF 25-30% this admission with nonobstructive CAD by cath 08/19/23.
-Will manage as a NICM likely due to rapid atrial arrhythmia.
-New to Coreg 3.125 mg BID
-New to losartan and will transition to Entresto as an outpatient is BP and Cre stable.
-New to Jardiance 10 mg daily.
-Pending BP and labs as an outpatient can eventually add spironolactone.
-Patient with new Afib in RVR on admission that was successfully GINGER/CV'd on 08/20/23. He remains in SR on tele review by me 08/21/23.
-New to Eliquis 5 mg BID. Will complete 4 weeks OAC and then likely stay on OAC due to CHADS Vasc of 2
-Patient was diagnosed with AAMIR by sleep study years ago, but at that time his insurance did not cover CPAP. He has different insurance now. He will get another sleep study as an outpatient.
-He did not withdrawal this admission and is working on reducing alcohol intake.
-Smoking cessation recommended.
-LDL 84 with nonobstructive CAD on cath.
-Troponin peaked at 0.048 and was managed as a nonischemic myocardial injury Troponin elevation.
-D/C to home 08/21/23
HPI: Patient came to [facility] today from his PCP's office with increased LE edema and new Afib, cardiology has been consulted. Patient started with increased LE edema 2-3 weeks ago. At first he thought it was from being at work and on his feet all day,
but this was a new symptom. He started with SOB about 1-2 weeks ago and has been unable to sleep the last 2-3 nights with symptoms of restlessness, but not reported orthopnea. No resting SOB. Patient saw his PCP today and was in new Afib, but he
does not feel palpitations. Patient was sent to [facility] and pro-BNP 1190 and evidence of CHF by CXR. Patient was given Lasix 40 mg IV x1 in the ER and has noted tremendous urine output thus far. Patient drinks a Monster energy drink daily plus 5 hour
energy drinks as needed. He drinks about a fifth of Radu weekly. He is still smoking about half a pack a day.
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
Subjective
Date of Service: August 21, 2023
Feels much better
Objective
Labs:
08/21/23 03:15
08/21/23 03:15
Labs
Hgb 14.3 g/dL (13.0-18.0) 08/21/23 03:15
Hct 44.5 % (39.0-52.0) 08/21/23 03:15
Plt Count 216 10^3/uL (130-400) 08/21/23 03:15
APTT Cancelled 08/19/23 14:30
Sodium 138 mmol/L (135-145) 08/21/23 03:15
Potassium 4.7 mmol/L (3.5-5.1) 08/21/23 03:15
BUN 24 mg/dl (9-20) H 08/21/23 03:15
Creatinine 0.8 mg/dL (0.7-1.3) 08/21/23 03:15
Glucose 108 mg/dl (70-99) H 08/21/23 03:15
Troponins
08/18/23 08/18/23 08/19/23
12:29 19:21 02:10
Troponin I 0.041 H* 0.048 H* 0.047 H*
Vital Signs and I&O:
Vital Signs
Temp Pulse Resp BP Pulse Ox
98.1 F 70 18 104/73 94
08/21/23 07:36 08/21/23 07:37 08/21/23 07:36 08/21/23 07:37 08/21/23 07:36
Vital Signs
Temp Pulse Resp BP Pulse Ox
98.1 F 70 18 104/73 94
08/21/23 07:36 08/21/23 07:37 08/21/23 07:36 08/21/23 07:37 08/21/23 07:36
Intake & Output
08/19/23 08/20/23 08/21/23 08/22/23
06:59 06:59 06:59 06:59
Intake Total 30 / 30 660 / 660 720 / 720
Output Total 4060 / 4060 2400 / 2400 4325 / 4325 225 / 225
Balance -4030 / -4030 -1740 / -1740 -3605 / -3605 -225 / -225
Physical Exam
Physical Exam
GEN: AAOx3
HEENT: EOMI
LUNGS: No audible wheeze
CV: SR on tele
ABD: ND
EXT: Trace B/L LE edema
NEURO: Gross non-focal
SKIN: Psoriasis, otherwise warm, dry and pink.
--- NOTE | 2023-08-21 08:41 | W.CHA2DS2VAS ---
[id number] Score
Score
Age in Years (65=0, 65-74=1, >/=75=2): <65
Sex (Female=+1): Male
Congestive Heart Failure History (Yes=+1): Yes
Hypertension History (Yes=+1): No
Stroke/TIA/Thromboembolism History (Yes=+2): No
Vascular Disease History (Yes=+1): No
Diabetes Mellitus (Yes=+1): Yes
Score >/=2 is otherwise an anticoagulation candidate: 2
--- NOTE | 2023-08-21 09:27 | CM ---
Reviewed chart. Met with Mr. Woodward to review discharge plans. He states he is feeling better and maybe able to go home soon. He states he contacted his insurance [employer], ([phone]) to register. He has the $10.00 coupon for Jardiance and
$10.00 coupon for Eliquis. Prior to admission he resides with significant other in a two story hme with one step to enter. His master bedroom is on the first floor. Prior to admission he was independent with ambulation and adls. He cool not have
any DME in the home. He has a prescription plan and uses [facility] pharmacy. Medical work-up in progress. The discharge plan is to return home with his significant other when medically stable.
--- NOTE | 2023-08-21 10:40 | W.PN.HOSP.TC ---
Today's Communication/Plan
-
dc planning
Assessment / Plan
Assessment / Plan
# New onset A-fib
- s/p electrical cardioversion08/18 morning-remains in sinus rhythm. cw beta-teresa. Thyroid profile noted-no evidence of hyperthyroidism.
-Started on anticoagulation- switched to Eliquis from IV heparin.
# Bilateral lower extremities edema likely new onset CHF with reduced EF of 25 to 30%
-BNP 1190
-Chest x-ray with mild pulmonary vascular congestion/tiny bilateral pleural effusions.Hazy opacity projects over the right lower lung zone, which may represent alveolar pulmonary edema, subsegmental atelectasis, or pneumonia.
- chronic catheterization shows nonobstructive CAD
-Continue with diuretics with improving weight.
-Patient advised strongly to quit alcohol.
History of obstructive sleep apnea-patient had evaluation more than 10 years ago and was recommended a CPAP machine but could not afford at that point. He plans to return to see in sleep lab as before and get reevaluated and obtain CPAP.
# Elevated Trop-felt likely nonischemic myocardial injury
-Trop 0.041
-No complaints of chest pain
-Continue to monitor
#hyperglycemia - Hemoglobin A1c of 6.9 indicates type 2 DM
-sliding scale
-bgm
- is going on Jardiance for heart failure which also should help his diabetes mellitus. No plans for any other medication at this point.
#nicotine dependence
-nicotine patch
#hx of alcohol abuse
-Drinks on the weekends last some days of the week. Advised to abstain from alcohol altogether .
-continue to monitor
-No evidence of alcohol withdrawal
# DVT prophylaxis
-Lovenox
# CODE STATUS
-Full code
discussed with at bedside regarding Clinical diagnosis, treatment plan.
DC home if okay from cardiology standpoint.
Anticipated Discharge: Today
Subjective/Interval History
-
Date of Service: August 21, 2023
Voices no specific complaints
Objective Data
-
Labs:
Laboratory Results
08/21/23
03:15
WBC 10.8
Hgb 14.3
Hct 44.5
Plt Count 216
Sodium 138
Potassium 4.7
Chloride 96 L
Carbon Dioxide 35 H
BUN 24 H
Creatinine 0.8
Glucose 108 H
Calcium 9.7
Vital Signs:
Vital Signs
Temp Pulse Resp BP Pulse Ox
98.1 F 70 18 104/73 94
08/21/23 07:36 08/21/23 07:37 08/21/23 07:36 08/21/23 07:37 08/21/23 07:36
I&O
08/20/23 08/21/23 08/22/23
06:59 06:59 06:59
Intake Total 660 / 660 720 / 720
Output Total 2400 / 2400 4325 / 4325 975 / 975
Balance -1740 / -1740 -3605 / -3605 -975 / -975
Review of Systems
-
Respiratory: Denies Trouble Breathing
Cardiac: Denies Chest Pain
Abdomen/GI: Denies Nausea or Vomiting
Neuro: Denies Dizzy
Physical Exam
-
General: No Apparent Distress
HEENT: Moist Mucous Membranes
Respiratory: Clear to Auscultation
Cardiac: Regular Rhythm
Musculoskeletal: Edema, Right Lower Extrem and Edema, Left Lower Extrem ( improved in both legs)
Neuro: AO x 3
Psych: Calm
Data Reviewed
-
Labs: Labs Reviewed by me
--- NOTE | 2023-08-21 10:48 | W.DS.TRANS ---
DC Summary - Lead Ramp Agent
-
Discharge Instructions:
Discharge Diagnosis/Procedures Afib, cardiomyopathy, Cardiac cath, GINGER
Cardioversion, new DM type 2 HbA1c 6.9
Diet 2 Gram Sodium,Restrict fluids to 48 oz
Activity As tolerated
Driving Restrictions No driving for 24 hours
Blood Work BMP in 1 week
Specialty Instructions Weigh Daily
Instructions: *[facility] Heart Failure Instructions
Stand-Alone Forms: DC Instructions- Cath/EP Lab
Changes to Home Medications: Yes
Discharge Medications:
DC Medications w/original date entered in [facility]
apixaban 5 mg tablet (Eliquis) 5 mg PO BID Blood clot prevention/tx #60 tabs 08/21/23
carvedilol 3.125 mg tablet 3.125 mg PO BID Heart Failure #60 tabs 08/21/23
empagliflozin 10 mg tablet (Jardiance) 10 mg PO DAILY Heart Failure #30 tabs 08/21/23
furosemide 40 mg tablet (Lasix) 40 mg PO DAILY Heart Failure #30 tabs 08/21/23
losartan 25 mg tablet 25 mg PO DAILY Heart Failure #30 tabs 08/21/23
Home Medication Changes
All above medications are new
Pending Results: No
[2023-08-21 11:03] VITALS: BP 102/71
[2023-08-21 11:49] LABS: Glucose - Point of Care 111 mg/dl (70-99)
--- NOTE | 2023-08-21 13:14 | PTCARENOTE ---
The patient is discharged home. A bathroom scale was given to him so he can weight himself daily. Heart failure instructions reviewed with him again.
== END 2023-08-21 13:47 | disposition home or self-care (01) | DRG 286 ==
LOC: IVU 15:35
PROVIDERS: Internal Medicine Cardiovascular Disease; Internal Medicine Interventional Cardiology; Physician Assistant Medical; Registered Nurse; ADMITTING PHYSICIAN Internal Medicine; CONSULT PHYSICIAN Nuclear Medicine Nuclear Cardiology; EMERGENCY PHYSICIAN Emergency Medicine; FAMILY PHYSICIAN Family Medicine
PROC: B2151ZZ Fluoroscopy of Left Heart using Low Osmolar Contrast (ICD-10-PCS; 2023-08-19)
PROC: B2111ZZ Fluoroscopy of Multiple Coronary Arteries using Low Osmolar Contrast (ICD-10-PCS; 2023-08-19)
PROC: 4A023N7 Measurement of Cardiac Sampling and Pressure, Left Heart, Percutaneous Approach (ICD-10-PCS; 2023-08-19)
PROC: 5A2204Z Restoration of Cardiac Rhythm, Single (ICD-10-PCS; 2023-08-20)
PROC: B24BZZ4 Ultrasonography of Heart with Aorta, Transesophageal (ICD-10-PCS; 2023-08-20)
DX: I48.91 Unspecified atrial fibrillation (principal); I50.21 Acute systolic (congestive) heart failure; I5A Non-ischemic myocardial injury (non-traumatic); F17.210 Nicotine dependence, cigarettes, uncomplicated; I07.1 Rheumatic tricuspid insufficiency; E11.65 Type 2 diabetes mellitus with hyperglycemia; F10.10 Alcohol abuse, uncomplicated; L40.9 Psoriasis, unspecified; I25.10 Atherosclerotic heart disease of native coronary artery without angina pectoris
CPT/HCPCS: 71046; 80048; 80053; 80061; 82248; 82962; 83036; 83735; 83880; 84439; 84443; 84484; 85025; 85027; 85730; 92960; 93005; 93306; 93312; 93320; 93325; 93454; 96374; 97163; 99285; C1894; Q9967

== ENCOUNTER 2023-10-02 15:19 | Outpatient (RCR) | payer OTHER, SELFPAY ==
[2023-10-02 14:16] LABS: Glucose - Point of Care 82 mg/dl (70-99)
[2023-10-02 14:30] LABS: Glucose - Point of Care 84 mg/dl (70-99)
[2023-10-02 14:52] LABS: Glucose - Point of Care 144 mg/dl (70-99)
[2023-10-02 15:03] LABS: Glucose - Point of Care 180 mg/dl (70-99)
== END 2023-10-02 23:59 | disposition home or self-care (01) ==
LOC: CRHB 15:19
PROVIDERS: ATTENDING PHYSICIAN Nuclear Medicine Nuclear Cardiology; FAMILY PHYSICIAN Family Medicine
DX: I50.22 Chronic systolic (congestive) heart failure (principal)
CPT/HCPCS: 82962; G0422; G0423

== ENCOUNTER 2023-10-03 09:15 | Day surgery (SDC) | payer OTHER, SELFPAY ==
--- NOTE | 2023-10-03 10:12 | ITS.CL.CARDI ---
[facility] - Cardioversion
Cardioversion
Procedure Report:
Date of Procedure:
Procedure: Cardioversion
Indication: Symptomatic atrial fibrillation
Performing Physician: Miles Dyer MD
Technique: The patient was brought to the holding area. Signed informed consent was obtained. A time out was called and performed. The patient was anesthetized by the anesthesia service. Anticoagulation status was reviewed and appropriate. R2 pads
were placed anteriorly and posteriorly. A 200 J synchronized biphasic shock restored normal sinus rhythm without significant bradycardia. There were no complications.
Conclusion: Uncomplicated cardioversion from atrial fibrillation to sinus rhythm.
Recommendation: Routine post cardioversion care. Continue fdc anticoagulation.
== END 2023-10-03 11:00 | disposition home or self-care (01) ==
LOC: CATH 09:15
PROVIDERS: ATTENDING PHYSICIAN Internal Medicine Cardiovascular Disease; FAMILY PHYSICIAN Family Medicine
DX: I48.91 Unspecified atrial fibrillation (principal); I08.1 Rheumatic disorders of both mitral and tricuspid valves; I50.9 Heart failure, unspecified; E11.9 Type 2 diabetes mellitus without complications; Z79.01 Long term (current) use of anticoagulants
CPT/HCPCS: 92960; 93005

== ENCOUNTER 2023-11-05 06:50 | Outpatient (RCR) | payer OTHER, SELFPAY ==
[2023-10-06 06:41] LABS: Glucose - Point of Care 123 mg/dl (70-99)
[2023-10-06 07:27] LABS: Glucose - Point of Care 101 mg/dl (70-99)
[2023-10-08 06:43] LABS: Glucose - Point of Care 125 mg/dl (70-99)
[2023-10-08 07:38] LABS: Glucose - Point of Care 97 mg/dl (70-99)
[2023-10-10 06:35] LABS: Glucose - Point of Care 155 mg/dl (70-99)
[2023-10-10 07:28] LABS: Glucose - Point of Care 101 mg/dl (70-99)
[2023-10-13 06:32] LABS: Glucose - Point of Care 137 mg/dl (70-99)
[2023-10-13 07:30] LABS: Glucose - Point of Care 137 mg/dl (70-99)
[2023-10-15 06:30] LABS: Glucose - Point of Care 181 mg/dl (70-99)
[2023-10-15 07:33] LABS: Glucose - Point of Care 114 mg/dl (70-99)
[2023-10-17 06:42] LABS: Glucose - Point of Care 170 mg/dl (70-99)
[2023-10-17 07:32] LABS: Glucose - Point of Care 112 mg/dl (70-99)
== END 2023-11-05 23:59 | disposition home or self-care (01) ==
LOC: CRHB 06:50
PROVIDERS: ATTENDING PHYSICIAN Nuclear Medicine Nuclear Cardiology; FAMILY PHYSICIAN Family Medicine
DX: I50.22 Chronic systolic (congestive) heart failure (principal)
CPT/HCPCS: 82962; 93798; G0422; G0423

== ENCOUNTER → 2023-11-26 09:58 | Outpatient (REF) | payer OTHER, SELFPAY | LOC: RCS 09:58 | PROVIDERS: ATTENDING PHYSICIAN Physician Assistant Medical; FAMILY PHYSICIAN Family Medicine | DX: I48.0 Paroxysmal atrial fibrillation (principal); I50.22 Chronic systolic (congestive) heart failure | CPT/HCPCS: 93306 ==

== ENCOUNTER 2023-12-05 06:49 | Outpatient (RCR) | payer OTHER, SELFPAY | END 2023-12-05 23:59 | disposition home or self-care (01) | LOC: CRHB 06:49 | PROVIDERS: ATTENDING PHYSICIAN Nuclear Medicine Nuclear Cardiology; FAMILY PHYSICIAN Family Medicine | DX: I50.22 Chronic systolic (congestive) heart failure (principal) | CPT/HCPCS: G0422 ==

== ENCOUNTER 2023-12-15 08:06 | Day surgery (SDC) | payer OTHER, SELFPAY ==
[2023-12-01 10:09] VITALS: BMI 35.1
[2023-12-01 10:46] LABS: % Basophils 0.5 % (0-2); % Eosinophils 1.7 % (0-6); % Immature Granulocytes 0.4 % (0-0.5); % Lymphocytes 14.4 % (20.5-51.1); % Monocytes 8.8 % (1.7-9.3); % Neutrophils 74.2 % (42.2-75.2); ALT (SGPT) 26 U/L (0-50); AST (SGOT) 23 U/L (17-59); Absolute Eosinophils 0.1 10^3/uL (0-0.7); Absolute Lymphocytes 1.2 10^3/uL (1.2-3.4); Absolute Monocytes 0.7 10^3/uL (0.1-0.6); Albumin 4.3 g/dl (3.5-5.0); Alkaline Phosphatase 79 U/L (38-126); Blood Urea Nitrogen 22 mg/dl (9-20); Calcium 9.6 mg/dl (8.4-10.2); Carbon Dioxide 35 mmol/L (22-30); Chloride 100 mmol/L (98-107); Estimated Creatinine Clearance > 125 ml/min; Glucose 100 mg/dl (70-99); Hematocrit 41.5 % (39.0-52.0); Hemoglobin 14.1 g/dL (13.0-18.0); Magnesium 2.2 mg/dl (1.6-2.3); Mean Corpuscular Hgb 29.4 pg (27.0-31.0); Mean Corpuscular Volume 86.5 fL (80.0-94.0); Mean Platelet Volume 9.6 fL (7.4-10.4); Nucleated Red Blood Cells % 0 % (-); Platelet Count 237 10^3/uL (130-400); Potassium 4.1 mmol/L (3.5-5.1); Red Cell Dist. Width 13.5 % (11.5-14.5); Sodium 142 mmol/L (135-145); Total Bilirubin 0.6 mg/dl (0.2-1.3); Total Protein 6.9 g/dl (6.3-8.2); White Blood Cell Count 8.1 10^3/uL (4.8-10.8); eGFR > 60.00
[2023-12-01 10:53] LABS: INR 1.25; PT 15.5 Sec (11.4-14.6)
[2023-12-15] VITALS (12 sets, daily range): BP systolic 99–137; BP diastolic 50–77; BMI 33.9
[2023-12-15 08:37] LABS: Glucose - Point of Care 127 mg/dl (70-99)
[2023-12-15 11:32] LABS: ACT-LR - POC 337 Seconds (116-155)
[2023-12-15 11:52] LABS: ACT-LR - POC 319 Seconds (116-155)
[2023-12-15 12:12] LABS: ACT-LR - POC 376 Seconds (116-155)
[2023-12-15 12:18] LABS: Glucose - Point of Care 123 mg/dl (70-99)
[2023-12-15 13:20] LABS: Glucose - Point of Care 122 mg/dl (70-99)
--- NOTE | 2023-12-15 14:08 | ITS.CL.ABL ---
Financial Reporting Accountant - Ablation
Ablation
Procedure Report:
ELECTROPHYSIOLOGIC STUDY AND POSSIBLE ABLATION
DATE: 12/15/23
Primary Care Provider: Dr. Dirk Jackson
Primary Doughnut Dough Mixer: Dr. Miles Renee
INDICATION:
Symptomatic Atrial Fibrillation.
Persistent
HISTORY: See H and P.
Symptomatic AF, poorly controlled with attempted medical therapy.
Symptomatic paroxysmal atrial fibrillation which has been associated with heart failure with reduced ejection fraction.
Symptoms with atrial fibrillation include exertional fatigue, dyspnea on exertion.� There is a concern that atrial fibrillation is etiology of or at least contributing to his cardiomyopathy and clinical heart failure.
Transthoracic echocardiogram August 19, 2023 finds LVEF of 25 to 30% with global hypokinesis.� The left atrium is mildly dilated and the right atrium is mildly dilated.� There is no significant valvular disease
HAS-BLED: 1
CHADSVASc: 2
CHF, NYHA Class 3, HFrEF, LVEF 25-30%
DM
PRESENTING RHYTHM: SR (on amiodarone 200 mg twice daily)
HISTORY: See H and P.
Symptomatic AF, poorly controlled with attempted medical therapy.
ANTIARRHYTHMIC DRUG: Amiodarone 200 mg twice daily
ANTICOAGULATION: Eliquis
'TIME-OUT': called and confirmed.
SEDATION/ANESTHESIA: provided via the anesthesia department using general anesthesia.
PROCEDURE:
Ultrasound Guidance performed by ok was utilized for femoral venous Vascular Access b/l.
A decapolar CS catheter was placed within the CS for mapping and pacing.
The intracardiac ultrasound catheter was positioned in the RA for continuous intracardiac ultrasound imaging.
Heparin bolus and infusion to target ACT at 300 -350 seconds was administered. Transseptal puncture was performed. This entailed advancing a sheath with dilator into the superior vena cava and withdrawing both (monitoring intracardiac ultrasound,
fluoroscopy and tip pressure) with the tip oriented toward the atrial septum. The fossa ovalis was engaged (indicated by sudden displacement of the sheath tip as well as tenting of the fossa seen on intracardiac ultrasound).
[employer] transseptal system was used. Left atrial catheter position was confirmed by echocardiographic imaging, pressure monitoring (LA mean pressure [ ] mm Hg) and fluoroscopy. The sheath was advanced over the dilator and positioned in the left
atrium.
The multipolar mapping catheter was initially positioned through the transseptal sheath for high density mapping.
Geometry and voltage mapping was performed using the Vargas multipolar grid catheter. Navex was utilized for three-dimensional electroanatomical mapping.
A 3-D map was created using Navex. A 3-D reconstructed CT image was compared to the 3-D Navex map to assist in anatomic evaluation, mapping and ablation.
The Nu-Med Plus Pulse Select PFA catheter and system was used for cardiac ablation. Catheter positioning was guided and confirmed using both I.C.E. and fluoroscopy.
PV isolation approach was used to electrically isolate each PV ostia; LSPV, LIPV, RSPV, RIPV. .
Remapping with the Vargas multipolar grid catheter found that all PVPs were eliminated at each vein demonstrating entrance block. Also pacing from the multipolar mapping catheter around the the circumference of the ostia was performed at 10 ma and
2.0 msec output to assess for exit block. This demonstrated electrical isolation at each of the pulmonary vein ostia LSPV, LIPV, RSPV, RIPV.
Additional energy applications/additional ablation set was required to accomplish wide area circumferential ablation around each of the pulmonary vein sets and also to accomplish left atrial posterior wall ablation targeting complex highly
fractionated electrograms in the posterior wall.
Mapping with the multipolar mapping catheter Vargas Grid to assess for any 're connect', none was observed. Both entrance and exit block is proven at each of the pulmonary veins as well as the posterior wall of the left atrium.
Programmed electrical stimulation then failed to induce any sustained arrhythmias.
I.C.E. :
Pre-Ablation Post-Ablation
LVEF: 35 % 35 %
WMA: none none
Pericardial effusion: none none
COMPLICATIONS:
None
SUMMARY:
- Mapping and ablation to isolate the PVs
- Additional AF ablation set after PVI.
- 3-D Electroanatomical Mapping
- Intracardiac Ultrasound
Post ablation, I discussed today's findings and results with the patient's , Edwige.
RECOMMENDATIONS:
- Observe in monitored bed.
- Maintain oral anticoagulation.
- Reduce amiodarone from 200 mg twice daily to 200 mg once daily and we can reassess this in 3 months.
If maintaining sinus rhythm can consider stopping amiodarone.
- Office visit with me in 3 months.
- Continue cardiovascular care with Dr Dyer
Copy to:
Dr. Dirk Jackson
Dr. Miles Manzano
--- NOTE | 2023-12-15 14:37 | W.PN.UPDATE ---
Update Note
Progress Note Update
Pt seen post PFA. Right groin site with vascade closure, no ht/bleeding. OOB ambulating, urinating without difficulty. Post EKG SB 50s w/1st deg AVB, RBBB- as before with no acute changes. Resume eliquis tonight. Decrease amiodarone to 200mg daily
until cardiology followup in [address] Renee. Home later today if groin site/tele remain stable.
== END 2023-12-15 15:35 | disposition home or self-care (01) ==
LOC: CATH 08:06
PROVIDERS: ATTENDING PHYSICIAN Internal Medicine Cardiovascular Disease; FAMILY PHYSICIAN Family Medicine; OTHER PHYSICIAN Internal Medicine Cardiovascular Disease
DX: I48.0 Paroxysmal atrial fibrillation (principal); R06.02 Shortness of breath; R53.83 Other fatigue; I11.0 Hypertensive heart disease with heart failure; I50.22 Chronic systolic (congestive) heart failure; I45.10 Unspecified right bundle-branch block; I42.9 Cardiomyopathy, unspecified; E11.9 Type 2 diabetes mellitus without complications; G47.33 Obstructive sleep apnea (adult) (pediatric); Z87.891 Personal history of nicotine dependence; E78.5 Hyperlipidemia, unspecified; E66.9 Obesity, unspecified; Z68.35 Body mass index [BMI] 35.0-35.9, adult; Z79.01 Long term (current) use of anticoagulants; Z79.84 Long term (current) use of oral hypoglycemic drugs
CPT/HCPCS: C1762; C1894; C1733; C1769; C1730; 36415; 75572; 80053; 82962; 83735; 85025; 85610; 86850; 86900; 86901; 93005; 93656; 93657; C1732; C1760; C1892; Q9967

== ENCOUNTER 2024-01-02 08:54 | Outpatient (RCR) | payer OTHER, SELFPAY | END 2024-01-05 10:40 | disposition home or self-care (01) | LOC: CRHB 08:54 | PROVIDERS: ATTENDING PHYSICIAN Nuclear Medicine Nuclear Cardiology; FAMILY PHYSICIAN Family Medicine | DX: I50.22 Chronic systolic (congestive) heart failure (principal) | CPT/HCPCS: G0422 ==